=== PATIENT | male | born 1955 | race Caucasian/White ===

== ENCOUNTER 2016-12-21 10:11 | Emergency (ER) | payer MEDICARE ==
[~2016-12-21] VITALS: Ht 165.1 cm; Wt 71.2 kg
[~2016-12-21 10:11] MED LIST: ALBUTEROL1.25 MG/3 INH; ASMANEX 2214 PUFF/IN INH; AZITHROMYCIN250 MG PO; CELEXA40 MG PO; CETIRIZINE HCL5 MG PO; FLEXERIL10 MG PO; NEURONTIN300 MG PO; NORCO 325-10 MG1 TAB PO; OMNICEF300 MG PO; PRAVACHOL80 MG PO; PREDNISONE20 MG PO; PREDNISONE5 MG PO; PROVENTIL HFA6.7 GM INH; SPIRIVA RESPIMAT4 GM INH; STRIVERDI RESPIM4 GM INH; TRAZODONE HCL300 MG PO; XANAX1 MG PO; ZOVIRAX200 MG PO
== END 2016-12-21 17:55 | disposition short-term general hospital (02) ==
LOC: ER 10:11
DX: H40.212 Acute angle-closure glaucoma, left eye (principal); J44.9 Chronic obstructive pulmonary disease, unspecified; E78.5 Hyperlipidemia, unspecified; F41.9 Anxiety disorder, unspecified; Z79.899 Other long term (current) drug therapy; Z88.6 Allergy status to analgesic agent; Z87.891 Personal history of nicotine dependence
CPT/HCPCS: A9577; J2175; J2270; J2405